=== PATIENT | male | born 1975 | race Caucasian/White ===

== ENCOUNTER 2017-03-12 20:57 | Emergency (ER) | payer BC ==
[2017-03-12 21:01] VITALS: TEMP 97.3
--- NOTE | 2017-03-12 21:08 | CPEKG ---
Heart Rate: 62 RR Interval: 968 P-R Interval: 188 QRSD Interval: 84 QT Interval: 432 QTC Interval: 439 P [place]: 72 QRS [place]: 50 T Wave [place]: 1 EKG Severity - ABNORMAL ECG - EKG Impression: SINUS RHYTHM EKG Impression: CONSIDER LEFT VENTRICULAR HYPERTROPHY Electronically Signed By: Tia Juarez 13-Mar-2017 02:01:03
[2017-03-12] MEDS ORDERED: ASPIRIN 81 MG CHEWABLE TAB PO ONE (21:36)
[2017-03-12 21:44] LABS: PLATELET COUNT 230 10^3/uL (150-400)
--- NOTE | 2017-03-12 22:21 | EDPHY ---
HPI/HX/ROS/PE/MDM Narrative: CHIEF COMPLAINT: Chest pain HISTORY OF PRESENT ILLNESS: This patient is a healthy 41 year old male complaining of chest pain. This began a few hours prior to arrival while eating a salad. Pain feels like a pressure in his left chest. This discomfort does not radiate to his back, neck, or jaw. He does not feel short of breath. It is not pleuritic. He has had a similar sensation with stress in the past which generally resolved within a few hours. He has not been evaluated for this. His discomfort today is more severe than in the past and he does not feel like he has been under any unusual stress lately. Yesterday, went [place] at [employer], but does not feel his discomfort is musculoskeletal. His discomfort was severe enough that he called his sister to take him to the emergency department. He did take one 81mg Aspirin prior to arrival. He denies nausea, diaphoresis. No history of heartburn or indigestion. No history of hypertension or diabetes. Family history positive for CAD at a young age in maternal grandfather. No fever, chills, shortness of breath, palpitations, vomiting, diarrhea, urinary complaints, headache, lightheadedness. REVIEW OF SYSTEMS: Aside from elements discussed in the HPI, a comprehensive 10-point review of systems was reviewed and is negative. PAST MEDICAL HISTORY: Epilepsy SOCIAL HISTORY: Sister at bedside. Nonsmoker. No alcohol or illicit drug use. VITAL SIGNS: Reviewed by me GENERAL: Well-developed, well-nourished, resting comfortably in no respiratory distress. HEENT: Atraumatic. Eyes: No icterus, no injection. Mouth: moist mucous membranes. No erythema or lesions. Neck: supple with no adenopathy. LUNGS: Clear to auscultation bilaterally, no wheezes, rhonchi or rales. CARDIAC: Regular rate and rhythm, no rubs, murmurs or gallops. ABDOMEN: Soft, nontender, nondistended, bowel sounds normal. BACK: No CVA tenderness. EXTREMITIES: No trauma. No edema. Range of motion is normal throughout. NEURO: Alert and oriented, grossly nonfocal. SKIN: Warm and dry, no rash. PSYCHIATRIC: Normal mentation, no agitation. Portions of this note were transcribed by a medical director. I personally performed a history, physical exam, medical decision making, and confirmed accuracy of information the transcribed note. ED Course: 41 y/o male presents with chest pain onset several hours prior to arrival. Exam unremarkable. Plan for EKG, chest x-ray, labs including CBC, chemistries, troponin, liver, lipase. Plan to administer 324mg PO Aspirin. The 12 lead EKG was interpreted by myself. See hard copy and/or "tracemaster" electronic copy for interpretation. Sinus rhythm, rate 62. Possible left ventricular hypertrophy. No ischemic changes. Troponin negative. Laboratory studies within normal limits. Chest x-ray negative for acute processes. Reassessed patient. He is feeling better. Plan for repeat troponin. If this is negative, plan to discharge home. The HEART system was discussed at length with the patient. Patient's heart score is history = 0, EKG = 1 for LVH, age = 0, risk factors = 0, troponin = 0. We discussed options including DC home, repeat troponin, or admission. Patient and his sister both feel comfortable with the plan of repeat troponin at 4:00 a.m.. Patient's troponin 4 hr after the onset of pain is negative. Patient was discharged home. He will follow up with his primary care physician via phone tomorrow and schedule a urgent stress test or further testing as guided by his primary care physician. He understands the importance of return to the emergency department should his symptoms recur or worsen. MDM: After history and physical examination, the differential for chest pain was considered, including but not limited to, myocardial ischemia, acute coronary syndrome, pulmonary embolus, chest wall pain, pleural inflammation and pulmonary infectious causes. - Data Points Imaging Results: Imaging Impressions Chest X-Ray 03/12/17 21:36 Impression: Query airways disease. Imaging: I viewed and interpreted images myself Laboratory Results: Laboratory Results 03/12/17 21:12 03/12/17 21:12 03/12/17 03/12/17 03/12/17 22:50 21:12 21:12 WBC 7.33 10^3/uL 10^3/uL (3.80-9.50) RBC 5.06 10^6/uL 10^6/uL (4.40-6.38) Hgb 15.7 g/dL g/dL (13.7-17.5) Hct 44.2 % % (40.0-51.0) MCV 87.4 fL fL (81.5-99.8) MCH 31.0 pg pg (27.9-34.1) MCHC 35.5 g/dL g/dL (32.4-36.7) RDW 12.2 % % (11.5-15.2) Plt Count 230 10^3/uL 10^3/uL (150-400) MPV 10.2 fL fL (8.7-11.7) Neut % (Auto) 41.8 % % (39.3-74.2) Lymph % (Auto) 44.5 % % (15.0-45.0) [place] % (Auto) 10.0 % % (4.5-13.0) Eos % (Auto) 2.7 % % (0.6-7.6) Baso % (Auto) 0.7 % % (0.3-1.7) Nucleat RBC Rel Count 0.0 % % (0.0-0.2) Absolute Neuts (auto) 3.07 10^3/uL 10^3/uL (1.70-6.50) Absolute Lymphs (auto) 3.26 10^3/uL H 10^3/uL (1.00-3.00) Absolute Monos (auto) 0.73 10^3/uL 10^3/uL (0.30-0.80) Absolute Eos (auto) 0.20 10^3/uL 10^3/uL (0.03-0.40) Absolute Basos (auto) 0.05 10^3/uL 10^3/uL (0.02-0.10) Absolute Nucleated RBC 0.00 10^3/uL 10^3/uL (0-0.01) Immature Gran % 0.3 % % (0.0-1.1) Immature Gran # 0.02 10^3/uL 10^3/uL (0.00-0.10) Sodium 142 mEq/L mEq/L (135-145) Potassium 4.3 mEq/L mEq/L (3.5-5.2) Chloride 104 mEq/L mEq/L (97-110) Carbon Dioxide 23 mEq/l mEq/l (22-31) Anion Gap 15 mEq/L mEq/L (8-16) BUN 19 mg/dL mg/dL (7-23) Creatinine 1.0 mg/dL mg/dL (0.7-1.3) Estimated GFR > 60 Glucose 97 mg/dL mg/dL (70-100) Calcium 9.7 mg/dL mg/dL (8.5-10.4) Total Bilirubin 0.4 mg/dL mg/dL (0.1-1.4) Conjugated Bilirubin 0.3 mg/dL mg/dL (0.0-0.5) Unconjugated Bilirubin 0.1 mg/dL mg/dL (0.0-1.1) AST 32 IU/L IU/L (17-59) ALT 44 IU/L IU/L (21-72) Alkaline Phosphatase 95 IU/L IU/L (38-126) Troponin I < 0.012 ng/mL ng/mL < 0.012 ng/mL ng/mL (0.000-0.034) (0.000-0.034) Total Protein 7.7 g/dL g/dL (6.3-8.2) Albumin 4.8 g/dL g/dL (3.5-5.0) Lipase 221 IU/L IU/L (23-300) Medications Given: Discontinued Medications Aspirin (Aspirin) 324 mg PO EDNOW ONE Stop: 03/12/17 21:37 Last Admin: 03/12/17 21:44 Dose: 324 mg General Time Seen by Provider: 03/12/17 21:21 Initial Vital Signs: Initial Vital Signs Temperature (C) 36.3 C 03/12/17 20:59 Heart Rate 71 03/12/17 20:59 Respiratory Rate 16 03/12/17 20:59 Blood Pressure 136/100 H 03/12/17 20:59 O2 Sat (%) 99 03/12/17 20:59 O2 Delivery Mode Room Air Allergies/Adverse Reactions: No Known Allergies Allergy (Unverified 03/12/17 21:01) Departure - Departure Disposition: Home, Routine, Self-Care Clinical Impression: Chest pain Condition: Good Instructions: Chest Pain (ED) Additional Instructions: 1. Follow up with your primary care physician for further evaluation. 2. Follow up with a telecommunications clerk for further testing, as soon as possible, within one week. 3. Return to the Emergency Department for fever, chest pain, shortness of breath , increasing pain or other worsening of condition. As we discussed, it is impossible to fully rule out heart disease as the cause of your chest pain in the emergency department. We would be happy to reevaluate you and observe you in the hospital at any time. Referrals: Kamari Light MD [Primary Care Provider] - As per Instructions Rey Salinas MD [Medical Doctor] - As per Instructions Report Scribed for: Tia Juarez Report Scribed by: Yaneli Esqueda Date of Report: 03/12/17 Time of Report: 23:01
[2017-03-12 23:48] VITALS: BP 151/91; PULSE 61; RESP 18; O2SAT 96
== END 2017-03-12 23:48 | disposition home or self-care (01) ==
DX: R07.9 Chest pain, unspecified (principal)

== ENCOUNTER 2017-04-06 06:24 | Day surgery (SDC) | payer BC ==
[2017-04-06] MEDS ORDERED: FAMOTIDINE 20 MG TAB PO ONE (06:25)
[2017-04-06] MEDS ORDERED: NS 1,000 ML IV ONE (06:25)
[2017-04-06] MEDS ORDERED: DIAZEPAM 5 MG TAB PO ONE (06:25)
[2017-04-06] MEDS ORDERED: diphenhydrAMINE 25 MG CAP PO ONE (06:25)
[2017-04-06] MEDS ORDERED: ASPIRIN EC 325 MG TAB PO ONE (06:25)
--- NOTE | 2017-04-06 06:47 | PDPROPOC ---
Sedation Plan of Care Sedation Plan of Care: mental status noted, patient educated of risks, benefits , alternatives, patient can tolerate sedation ASA Classification: ASA 2 Planned drugs: fentanyl, midazolam Mallampati Score: Class 1 Mallampati Reference Image: Patient passed 3-3-2 rule?: Yes
--- NOTE | 2017-04-06 06:47 | PDHPUP ---
History & Physical Update H&P update statement: This history and physical update is based on an assessment of the patient which was completed after admission or registration (within 24 hours), but prior to the surgery/procedure. H&P update: H&P reviewed & patient examined, no change in patient's condition since H&P completed
--- NOTE | 2017-04-06 06:47 | CPEKG ---
Heart Rate: 79 RR Interval: 759 P-R Interval: 176 QRSD Interval: 80 QT Interval: 368 QTC Interval: 422 P [place]: 68 QRS [place]: 53 T Wave [place]: -52 EKG Severity - ABNORMAL ECG - EKG Impression: SINUS RHYTHM EKG Impression: CONSIDER LEFT VENTRICULAR HYPERTROPHY EKG Impression: NONSPECIFIC T ABNORMALITIES, INFERIOR LEADS Electronically Signed By: Danilo Magaña 06-Apr-2017 10:47:04
[2017-04-06] MEDS ORDERED: CLOPIDOGREL BISULFATE 75 MG TAB ONE (06:52)
[2017-04-06] MEDS ORDERED: IOPAMIDOL (ISOVUE-370) 150 ML BTL IV ONE ×2 (07:05→07:34)
[2017-04-06] MEDS ORDERED: LIDOCAINE 1% 300 MG/30 ML SDV ONE (07:05)
[2017-04-06] MEDS ORDERED: MIDAZOLAM 2 MG/2 ML VIAL ONE (07:05)
[2017-04-06] MEDS ORDERED: fentaNYL 100 MCG/2 ML INJ ONE (07:05)
[2017-04-06 07:08] LABS: PLATELET COUNT 238 10^3/uL (150-400)
[2017-04-06] MEDS ORDERED: CLOPIDOGREL BISULFATE 75 MG TAB PO ONE (07:15)
[2017-04-06 07:18] LABS: INR 0.96 (0.83-1.16)
[2017-04-06] MEDS ORDERED: NITROGLYCERIN 0.4 MG BTL SL PRN (07:58)
[2017-04-06] MEDS ORDERED: OXYCODONE/APAP 5/325 TAB PO PRN (07:58)
[2017-04-06] MEDS ORDERED: IBUPROFEN 200 MG TAB PO PRN (07:58)
[2017-04-06] MEDS ORDERED: HYDROCODONE/APAP 5/325 TAB PO PRN (07:58)
[2017-04-06] MEDS ORDERED: ONDANSETRON 4 MG/2 ML VIAL IVP PRN (07:58)
[2017-04-06] MEDS ORDERED: ATROPINE SULFATE 1 MG/10 ML SYR IVP PRN (07:58)
--- NOTE | 2017-04-06 08:37 | CPIP ---
[f rep st] INVASIVE CARDIAC PROCEDURE DATE OF PROCEDURE: 04/06/2017 INDICATION FOR PROCEDURE: Chest pain. Positive stress test. PROCEDURE: 1. Nonselective right groin sheathogram. 2. Bilateral coronary angiography. 3. Left heart catheterization. 4. Left ventriculogram. HISTORY: Briefly, this is a 41-year-old male with history of recent episode of chest pain. The latanya ent had a TMET which was positive for ST depressions in the inferior leads. The patient then followe d this up with a nuclear stress test, which showed same ST depressions in inferior leads, with septal ischemia and diaphragmatic attenuation artifact. Given these findings, patient consented for left h eart catheterization. After informed consent, the patient was brought to [facility], where the right groin was prepped and draped in a sterile fashion. Using lidocaine, a short 6-Romansh sheath was placed in the right common femoral artery, verified angiographically. Through the 6-Romansh sheath, a JR4 minda ter was advanced to the left coronary artery. Images of the left coronary artery revealed a short le ft main. Left circumflex artery appeared to be healthy. There was a [id number] marginal 1 comi ng off proximally to healthy and free of disease. The LAD, which was a serpiginous vessel, was healt hy and free of disease, giving off multiple diagonal arteries which were healthy and free of disease. As the images was obtained, the JL4 catheter was removed. The JR4 catheter was advanced to the rig ht coronary artery. The right coronary artery did come off slightly anterior in the right coronary c longterm, though the JR4 was successful in cannulating this vessel. This revealed normal ostial RCA, norm al proximal, mid, distal RPDA and RPLS. Again, this was a serpiginous vessel like the LAD, but no st enosis was noted. As the images were obtained, the JR4 catheter was removed. Pigtail catheter was a dvanced to left ventricle. EDP was 15 mmHg. Left ventriculogram in the ROMAN projection showed EF of 65% with no wall motion abnormalities. The pigtail catheter was then removed. There was no pull-anila k gradient between the LV and the aorta. Pigtail catheter removed over the 0.035 wire. Right groin was closed with manual pressure. Patient tolerated the procedure well with no complications. IMPRESSION: Normal coronary arteries. Normal ejection fraction. PLAN: The patient's outpatient testing was a false-positive. The patient will be discharged home th is morning. He will follow up in the office in 1 week's time. /[id number]/MODL
[2017-04-06] MEDS ORDERED: ASPIRIN 81 MG CHEWABLE TAB PO SCH (09:00)
[2017-04-06] MEDS ORDERED: LAMOTRIGINE 200 MG PO SCH (21:00)
== END 2017-04-06 11:05 | disposition home or self-care (01) ==
LOC: FCATH 06:24
PROVIDERS: ATTEND Internal Medicine Cardiovascular Disease
PROC: B2111ZZ Fluoroscopy of Multiple Coronary Arteries using Low Osmolar Contrast (ICD-10-PCS; principal; 2017-04-06)
PROC: 4A023N7 Measurement of Cardiac Sampling and Pressure, Left Heart, Percutaneous Approach (ICD-10-PCS; principal; 2017-04-06)
PROC: B2151ZZ Fluoroscopy of Left Heart using Low Osmolar Contrast (ICD-10-PCS; principal; 2017-04-06)
DX: R07.89 Other chest pain (principal); G40.909 Epilepsy, unspecified, not intractable, without status epilepticus; Z72.89 Other problems related to lifestyle
CPT/HCPCS: J1644; J2250; J3010; Q9967